=== PATIENT | female | born 1940 | race Caucasian/White ===

== ENCOUNTER → 2018-02-20 | Day surgery (SDC) | payer OTHER ==
[2018-02-19 13:03] LABS: BASOPHILS # (AUTO) 0.1 (0.0-0.1); BASOPHILS % 0.6 % (0.0-1.0); EOSINOPHILS # (AUTO) 0.2 (0.0-0.4); EOSINOPHILS % 2.1 % (0.0-6.0); HEMATOCRIT 36.8 % (34.2-44.1); HEMOGLOBIN 12.6 g/dL (12.0-16.0); LYMPHOCYTES # (AUTO) 2.8 (1.0-3.2); LYMPHOCYTES % 32.6 % (18.0-39.1); MEAN CORPUSCULAR HEMOGLOBIN 28.4 pg (28-32); MEAN CORPUSCULAR HGB CONC 34.2 g/dL (31-35); MEAN CORPUSCULAR VOLUME 83.1 fL (81-99); MONOCYTES # (AUTO) 0.5 (0.2-0.8); MONOCYTES % 5.4 % (4.4-11.3); NEUTROPHILS # (AUTO) 5.1 (2.1-6.9); PLATELET COUNT 169 x10e3/uL (140-360); RED BLOOD COUNT 4.43 x10e6/uL (3.6-5.1); RED CELL DISTRIBUTION WIDTH 13.2 % (11.7-14.4)
[2018-02-19 13:25] LABS: ALANINE AMINOTRANSFERASE 27 IU/L (0-55); ALBUMIN 3.8 g/dL (3.5-5.0); ALBUMIN/GLOBULIN RATIO 1.2 (0.8-2.0); ALKALINE PHOSPHATASE 49 IU/L (40-150); BLOOD UREA NITROGEN 14 mg/dL (7-26); BUN/CREATININE RATIO 17 (6-25); CALCIUM 9.1 mg/dL (8.4-10.2); CARBON DIOXIDE 26 mmol/L (22-29); CHLORIDE 104 mmol/L (98-107); CHOL/HDL RATIO 4.5 (3.0-3.6); CHOLESTEROL 147 MD/DL (0-199); CREATININE, SERUM 0.84 mg/dL (0.57-1.11); EST GLOMERULAR FILTRATION RATE > 60 ML/MIN (60-); GLUCOSE 89 mg/dL (74-118); HDL CHOLESTEROL 33 MG/DL (40-60); LDL CHOLESTEROL 77 MG/DL (60-130); SODIUM 137 mmol/L (136-145); TRIGLYCERIDES 184 MG/DL (0-149)
[~2018-02-20] VITALS: Ht 165.1 cm; Wt 91.2 kg
[2018-02-20] VITALS (8 sets, daily range): BP systolic 118–149; BP diastolic 62–76
[~2018-02-20] MED LIST: BENAZEPRIL HCL10 MG PO; BENZOCAINE 20% SPR 60 ML CAN ONE; CYTOMEL5 MCG PO; FENTANYL CITRATE/PF 100MCG/2 ML INJ ONE; GABAPENTIN300 MG PO; HEPARIN SOD (PORCINE) 1000 UNIT/ML 30ML ONE; HEPARIN SOD/SOD CHLORIDE 2,000 ML ONE; HUMALOG MI100 UNIT/2 SQ; IOPAMIDOL 370 MG/ML 200 ML INFUS..BTL INJ ONE; LEVOTHYROXINE88 MCG PO; LIDOCAINE HCL 2% LOCAL 20 ML VIAL ONE; MELOXICAM7.5 MG PO; METFORMIN HCL500 M2 PO; MIDAZOLAM HCL 2 MG/2 ML VIAL ONE; NITROGLYCERIN/D5W 200 MCG/ML 250 ML ONE; PROPOFOL IV EMULSION 10 MG/ML 20 ML VIAL ONE; SODIUM CHLORIDE 0.9% 1000ML 1,000 ML ONE; TOPROL XL25 MG PO; VERAPAMIL HCL 2.5 MG/ML 2 ML VIAL ONE; VITAMIN B-121000 MCG PO; VITAMIN D1000 UNI1 PO
--- NOTE | 2018-02-20 13:54 | Operative Report ---
DATE OF PROCEDURE: February 20, 2018 PREOPERATIVE DIAGNOSES 1. Cardiomyopathy. 2. Heart failure. POSTOPERATIVE DIAGNOSES 1. Atrial fibrillation. 2. Heart failure. OPERATIONS PERFORMED 1. Right heart cath. 2. Coronary angiography. 3. Left heart cath with left ventriculogram. DETAILS OF PROCEDURE: Informed consent was obtained, and all the risks and the benefits of the procedure were explained to the patient prior to the procedure, all questions answered. Please see nursing documentation for all the medications administered during the procedure. Patient was prepped and draped in a sterile fashion. Before the procedure, a 20-gauge IV was placed in the right antecubital vein. The right arm was prepped and draped in a sterile fashion. The IV in the right antecubital space was wired with 0.018-inch guide wire and taken out. The site was then once again cleaned with chlorhexidine to maintain sterility and prepped and draped one more time. Operators changed their gloves to maintain sterility. A 7-[place]ut[place] sheath was placed through the right antecubital vein with the modified Seldinger technique over the previously placed wire. A right heart cath with saturations was performed through a 7-[place] catheter. Next, the right wrist was anesthetized using 1% lidocaine for local anesthesia. Using modified Seldinger technique, a 5-[place]ut[place] long Slender sheath was placed in the right radial artery. Radial mix of 200 mcg of nitroglycerin, 2.5 mg of verapamil and 3000 units of heparin was administered through the sheath for radial patency. Coronary angiography was performed using a 5-[place] Terumo Gregory catheter to engage both the left and the right coronary arteries. A 5-[place] pigtail catheter was used to perform a left heart cath and left ventriculography. All catheters were removed over a wire. At the end of the procedure, both of the sheaths were removed in the electrical laboratory technician with manual compression devices. TR band placed for the radial artery, and manual compression used for the right antecubital vein. Procedure was completed without any complications. SIGNIFICANT FINDINGS 1. No significant coronary artery disease. 2. Normal pulmonary capillary wedge and PA pressures. ANESTHETIC USED: 1% lidocaine for local anesthesia only. SPECIMEN REMOVED: None. ESTIMATED BLOOD LOSS: 25 mL. COMPLICATIONS: No complications. GRAFTS OR IMPLANTS PLACED: None. RECOMMENDATIONS 1. Post-cath recovery in the holding area after sheath removal. 2. Continue previous cardiac medications without any significant change. Please see the medical reconciliation for details. Job#: [id number]
== END | disposition home or self-care (01) ==
LOC: CATH LAB 10:38
PROVIDERS: ATTEND Internal Medicine Interventional Cardiology
DX: I42.9 Cardiomyopathy, unspecified (principal); I11.0 Hypertensive heart disease with heart failure; I50.9 Heart failure, unspecified; I48.91 Unspecified atrial fibrillation; I49.3 Ventricular premature depolarization; I34.0 Nonrheumatic mitral (valve) insufficiency; E11.9 Type 2 diabetes mellitus without complications; E03.9 Hypothyroidism, unspecified; Z88.0 Allergy status to penicillin; Z88.2 Allergy status to sulfonamides; Z01.812 Encounter for preprocedural laboratory examination; Z79.4 Long term (current) use of insulin; Z68.32 Body mass index [BMI] 32.0-32.9, adult; Z82.49 Family history of ischemic heart disease and other diseases of the circulatory system
CPT/HCPCS: 36415; 80053; 80061; 85025; 93041; 93312; 93320; 93325; 93460; J1644; J2001; J2250; J7030; Q9967

== ENCOUNTER → 2021-03-01 | Day surgery (SDC) | payer MEDICARE ==
[2021-02-25 10:13] LABS: BASOPHILS % 0.2 % (0.0-1.0); EOSINOPHILS # (AUTO) 0.1 (0.0-0.4); EOSINOPHILS % 1.5 % (0.0-6.0); HEMATOCRIT 32.7 % (34.2-44.1); HEMOGLOBIN 10.3 g/dL (12.0-16.0); LYMPHOCYTES # (AUTO) 1.9 (1.0-3.2); LYMPHOCYTES % 31.1 % (18.0-39.1); MEAN CORPUSCULAR HEMOGLOBIN 27.2 pg (28-32); MEAN CORPUSCULAR HGB CONC 31.5 g/dL (31-35); MEAN CORPUSCULAR VOLUME 86.5 fL (81-99); MONOCYTES # (AUTO) 0.4 (0.2-0.8); MONOCYTES % 5.8 % (4.4-11.3); NEUTROPHILS # (AUTO) 3.7 (2.1-6.9); NEUTROPHILS % 60.7 % (38.7-80.0); PLATELET COUNT 188 x10e3/uL (140-360); RED BLOOD COUNT 3.78 x10e6/uL (3.6-5.1); RED CELL DISTRIBUTION WIDTH 12.9 % (11.7-14.4)
[2021-02-25 10:50] LABS: ANION GAP 17.2 mmol/L (8-16); CREATININE, SERUM 0.95 mg/dL (0.57-1.11); POTASSIUM 4.2 mmol/L (3.5-5.1)
[2021-02-25 10:51] LABS: ALBUMIN 3.5 g/dL (3.5-5.0); ALBUMIN/GLOBULIN RATIO 1.1 (0.8-2.0)
[~2021-03-01] VITALS: Ht 165.1 cm; Wt 86.2 kg
[~2021-03-01] MED LIST changes: +FLECAINIDE ACET50 MG PO; -HEPARIN SOD (PORCINE) 1000 UNIT/ML 30ML ONE; -HEPARIN SOD/SOD CHLORIDE 2,000 ML ONE; +HUMALOG100 UNIT/1 SC; -IOPAMIDOL 370 MG/ML 200 ML INFUS..BTL INJ ONE; +LEVOTHYROXINE112 MCG PO; -LIDOCAINE HCL 2% LOCAL 20 ML VIAL ONE; +METFORMIN HCL500 MG PO; -NITROGLYCERIN/D5W 200 MCG/ML 250 ML ONE; -PROPOFOL IV EMULSION 10 MG/ML 20 ML VIAL ONE; -VERAPAMIL HCL 2.5 MG/ML 2 ML VIAL ONE; +XARELTO10 MG PO; +ZETIA10 MG PO
[2021-03-01 12:10] VITALS: BP 154/75
[2021-03-01 13:45] VITALS: BP 131/66
[2021-03-01 14:00] VITALS: BP 138/72
[2021-03-01 14:15] VITALS: BP 146/69
[2021-03-01 14:30] VITALS: BP 160/67
== END | disposition home or self-care (01) ==
LOC: CATH LAB 12:06
PROVIDERS: ATTEND Internal Medicine Interventional Cardiology
DX: I48.0 Paroxysmal atrial fibrillation (principal); Z95.818 Presence of other cardiac implants and grafts; I07.1 Rheumatic tricuspid insufficiency; I50.22 Chronic systolic (congestive) heart failure; J44.9 Chronic obstructive pulmonary disease, unspecified; E11.9 Type 2 diabetes mellitus without complications; Z79.4 Long term (current) use of insulin; Z79.02 Long term (current) use of antithrombotics/antiplatelets; Z82.49 Family history of ischemic heart disease and other diseases of the circulatory system; Z83.3 Family history of diabetes mellitus
CPT/HCPCS: 36415; 80053; 85025; 93312; 93320; 93325; J2250; J3010; J7030; 49446; 93307; 99152